=== PATIENT | female | born 1965 | race Caucasian/White ===

== ENCOUNTER 2019-09-24 16:16 | Emergency (ER) | payer BC, OTHER ==
[~2019-09-24] VITALS: Ht 154.9 cm; Wt 72.6 kg
[2019-09-24 16:16] VITALS: BP_SYST 114
[~2019-09-24 16:16] MED LIST: KLO1 PO; VENL150C2 PO
--- NOTE | 2019-09-24 16:16 | NUR ---
BROUGHT BACK TO BED #2 AND TRIAGED. REPORT GIVEN TO TAVARES
--- NOTE | 2019-09-24 16:40 | NUR ---
Urine collected and sent to lab as ordered
--- NOTE | 2019-09-24 16:50 | NUR ---
Dr. Ruggiero at bedside for examination.
--- NOTE | 2019-09-24 16:55 | NUR ---
Pt walked in to ER with c/o right flank pain x1 week. 12/09. Afebrile, v/s stable. no distress noted. Will continue to monitor
--- NOTE | 2019-09-24 17:15 | NUR ---
Lab at bedside to draw BMP
[2019-09-24] MEDS: KETOROLAC TROMETHAMINE 60 MG/2 ML VIAL IM ONE (17:27)
--- NOTE | 2019-09-24 17:29 | NUR ---
Toradol administered as ordered by
[2019-09-24 17:43] LABS: CALCIUM 8.4 mg/dL (8.4-11.0); CREATININE 0.69 mg/dL (0.55-1.30); POTASSIUM 4.1 mmol/L (3.5-5.1)
[2019-09-24 18:35] VITALS: BP_SYST 112
--- NOTE | 2019-09-24 18:35 | NUR ---
Patient given written and verbal discharge instructions and verbalizes understanding. ER MD discussed with patient the results and treatment provided. Patient in stable condition. ID arm band removed. Rx of Naprosyn and Clonazepam given. Patient educated on pain management and to follow up with PMD. Pain Scale 3. Opportunity for questions provided and answered. Medication side effect fact sheet provided.
== END 2019-09-24 18:35 | disposition home or self-care (01) ==
LOC: SED 16:16
DX: M54.5 Low back pain (principal)
CPT/HCPCS: 36415; 80048; 96372; 99283; J1885

== ENCOUNTER 2021-04-22 20:38 | Emergency (ER) | payer OTHER ==
[~2021-04-22] VITALS: Ht 154.9 cm; Wt 63.5 kg
[2021-04-22 20:40] VITALS: BP_SYST 149
--- NOTE | 2021-04-22 20:40 | NUR ---
PT TRIAGED AND PLACED IN WR. VSS. DENIES ANY DISTRESS AT THIS TIME. EKG DONE IN TRIAGE ROOM AND GIVEN TO MD RAJAN.
[2021-04-22 21:42] VITALS: BP_SYST 149
--- NOTE | 2021-04-23 00:13 | NUR ---
PT ELOPED AT THIS TIME. CALLED BUT NO ANSWER X3.
== END 2021-04-23 00:13 | disposition left against medical advice (07) ==
LOC: SED 20:38
DX: R07.89 Other chest pain (principal); Z53.21 Procedure and treatment not carried out due to patient leaving prior to being seen by health care provider
CPT/HCPCS: 93005